=== PATIENT | female | born 1960 | race Native Hawaiian/Other Pacific Islander ===

== ENCOUNTER 2016-08-23 12:45 | Inpatient (IN) | payer OTHER ==
[~2016-08-23] VITALS: Ht 172.7 cm; Wt 114.3 kg
[2016-08-23 14:25] VITALS: BP 157/85; TEMP 97.7; Ht 172.7 cm; Wt 114.3 kg
[2016-08-23] MEDS ORDERED: TRIBENZOR PO (14:38)
[2016-08-23] MEDS ORDERED: ZANTAC 75 PO (14:40)
[2016-08-23] MEDS ORDERED: GABA100C2 PO (14:40)
[2016-08-23] MEDS ORDERED: TRAM50TA PO (14:41)
[2016-08-23] MEDS ORDERED: RESTASIS0.05 % OP (14:42)
[2016-08-23] MEDS ORDERED: TRAVATAN Z0.004 % OP (14:42)
[2016-08-23 15:00] LABS: PLATELET COUNT 277 K/uL (152-353)
[2016-08-23 16:02] VITALS: BP 157/85; TEMP 97.7
[2016-08-23 16:06] LABS: POTASSIUM 2.8 mmol/L (3.6-5.2); SODIUM 133 mmol/L (136-145)
[2016-08-23 20:00] VITALS: BP 135/85; TEMP 97.7
[2016-08-24] VITALS: BP 98/71; TEMP 98
[2016-08-24 04:00] VITALS: BP 118/70; TEMP 98.4
[2016-08-24 05:06] LABS: PLATELET COUNT 248 K/uL (152-353)
[2016-08-24 05:15] LABS: POTASSIUM 3.4 mmol/L (3.6-5.2); SODIUM 137 mmol/L (136-145)
[2016-08-24 07:40] VITALS: BP 113/65; TEMP 98.1
[2016-08-24 12:00] VITALS: BP 123/71; TEMP 98.3
[2016-08-24 15:47] VITALS: BP 140/82; TEMP 98.2
[2016-08-24 20:00] VITALS: BP 129/56; TEMP 98.5
[2016-08-25 00:06] VITALS: BP 140/77; TEMP 98.3
[2016-08-25 05:41] VITALS: BP 116/73; TEMP 97.9
[2016-08-25 06:09] LABS: PLATELET COUNT 283 K/uL (152-353)
[2016-08-25 06:10] LABS: POTASSIUM 3.2 mmol/L (3.6-5.2); SODIUM 136 mmol/L (136-145)
[2016-08-25 07:42] VITALS: BP 129/83; TEMP 98.2
[2016-08-25 12:00] VITALS: BP 128/79; TEMP 97.8
[2016-08-25 16:09] VITALS: BP 137/71; TEMP 97.6
[2016-08-25 19:58] VITALS: BP 132/71; TEMP 98.3
[2016-08-26 00:03] VITALS: BP 126/99; TEMP 98
[2016-08-26 04:00] VITALS: BP 150/96; TEMP 98
[2016-08-26 04:49] LABS: PLATELET COUNT 324 K/uL (152-353)
[2016-08-26 05:03] LABS: POTASSIUM 4.1 mmol/L (3.6-5.2); SODIUM 135 mmol/L (136-145)
[2016-08-26 08:00] VITALS: BP 138/74; TEMP 98
[2016-08-26 12:00] VITALS: BP 143/84; TEMP 98
== END 2016-08-26 15:30 | disposition home or self-care (01) | DRG 392 ==
LOC: MED/SURG 12:45
PROVIDERS: Emergency Medicine; ADMIT Internal Medicine
DX: K29.60 Other gastritis without bleeding (principal); E86.0 Dehydration; R10.32 Left lower quadrant pain; R10.13 Epigastric pain
CPT/HCPCS: 36415; 80053; 81000; 82150; 83690; 83735; 85027; 86318; 96360; 96361; 96367; 96374; J1956; J3490; Q9963

== ENCOUNTER 2016-10-11 13:39 | Outpatient (CLI) | payer OTHER ==
[~2016-10-11 13:39] MED LIST: GABA100C2 PO; RESTASIS0.05 % OP; TRAM50TA PO; TRAVATAN Z0.004 % OP; TRIBENZOR PO; ZANTAC 75 PO
== END 2016-10-11 14:39 | disposition home or self-care (01) ==
LOC: RAD 13:39
DX: M85.9 Disorder of bone density and structure, unspecified (principal)

== ENCOUNTER 2020-08-19 16:56 | Emergency (ER) | payer OTHER ==
[~2020-08-19] VITALS: Ht 172.7 cm; Wt 112.0 kg
[2020-08-19 17:10] VITALS: BP 153/75; TEMP 98.2
== END 2020-08-19 17:54 | disposition home or self-care (01) ==
LOC: ED 16:56
DX: J30.89 Other allergic rhinitis (principal); R09.81 Nasal congestion
CPT/HCPCS: 99281